=== PATIENT | female | born 1995 | race African-American/Black ===

== ENCOUNTER 2016-04-22 17:42 | Emergency (ER) | payer BC, OTHER ==
[2016-04-22] MEDS ORDERED: IBUPROFEN 400 MG TABLET (FP) PO ONE ×2 (17:47→18:10)
[2016-04-22 17:48] VITALS: BP 140/83; PULSE 96; TEMP 100.3; BMI 36.0
--- NOTE | 2016-04-22 18:16 | PDOC ---
History of Present Illness - General Chief Complaint: Cold Symptoms Stated Complaint: SORE THROAT Time Seen by Provider: 04/22/16 17:45 History Source: Patient Exam Limitations: No Limitations - History of Present Illness Initial Comments: 04/22/16 18:16 Chief complain: Sore throat since yesterday with fever, slightly productive cough times one week yellowish phlegm and nasal congestion History of present illness: Patient is a 20-year-old female with no significant medical history here today complaining of having an upper respiratory infection for one week with a cough with small amount of yellowish phlegm and nasal congestion that started approximately one week ago. Patient reports that yesterday she started to have a sore throat with fever. Patient denies any shortness of breath. Patient reports that it hurts to swallow. 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 Patient denies any nausea vomiting or diarrhea. Timing/Duration: getting worse Severity: moderate Associated Symptoms: reports: cough (with yellowish phelgm), other (sore throat) Past History - Past Medical History Allergies/Adverse Reactions: Allergies Allergy/AdvReac Type Severity Reaction Status Date / Time No Known Allergies Allergy Verified 04/22/16 17:45 Home Medications: Ambulatory Orders Penicillin V Potassium [Pen Vee K -] 500 mg PO QID #28 tablet 04/22/16 Other medical history: DENIES. - Immunization History Td Vaccination: Yes Immunization Up to Date: Yes - Psycho/Social/Smoking Cessation Hx Anxiety: No Suicidal Ideation: No Smoking Status: No Smoking History: Never smoked Number of Cigarettes Smoked Daily: 0 Hx Alcohol Use: No Review of Systems - Review of Systems Able to Perform ROS?: Yes Constitutional: Yes: Fever (today ) HEENTM: Yes: Throat Pain Respiratory: Yes: Productive cough (yellowish ). No: Symptoms reported, Shortness of Breath, SOB with Exertion, SOB at Rest, Stridor, Wheezing Cardiac (ROS): No: Symptoms Reported ABD/GI: No: Symptoms Reported : No: Symptoms Reported Musculoskeletal: No: Symptoms Reported Integumentary: No: Symptoms Reported Neurological: No: Symptoms reported *Physical Exam - Vital Signs Last Vital Signs Temp Pulse Resp BP Pulse Ox 100.3 F H 96 H 19 140/83 98 04/22/16 17:45 04/22/16 17:45 04/22/16 17:45 04/22/16 17:45 04/22/16 17:45 - Physical Exam General Appearance: Yes: Appropriately Dressed HEENT: positive: TMs Normal, Pharyngeal Erythema, Tonsillar Erythema, Nasal Congestion. negative: Tonsillar Exudate, Rhinorrhea Neck: positive: Lymphadenopathy (R). negative: Lymphadenopathy (L) Respiratory/Chest: positive: Lungs Clear, Normal Breath Sounds. negative: Chest Tender, Respiratory Distress Cardiovascular: positive: Regular Rhythm, Regular Rate, S1, S2 Integumentary: positive: Normal Color Neurologic: positive: Alert, Normal Response, Responsive Medical Decision Making - Medical Decision Making 04/22/16 18:18 Patient is a 20-year-old female with no significant medical history here today complaining of having an upper respiratory infection for one week with a cough with small amount of yellowish phlegm and nasal congestion that started approximately one week ago. Patient reports that yesterday she started to have a sore throat with fever. Patient denies any shortness of breath. Patient reports that it hurts to swallow. 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 Patient denies any nausea vomiting or diarrhea.Denies any chance of is not sexually active. Out strep throat tonsillitis Plan: Decadron 10 mg by mouth now pen VK 500 mg qid for 7 days 04/22/16 19:25 04/22/16 19:48 throat C & S still not done will treat based on clinical symptoms *DC/Admit/Observation/Transfer Diagnosis at time of Disposition: Acute tonsillitis Qualifiers: Pharyngitis/tonsillitis etiology: unspecified etiology Qualified Code(s): J03.90 - Acute tonsillitis, unspecified - Discharge Dispostion Disposition: HOME Condition at time of disposition: Stable - Referrals Referrals: Kim Church MD [Primary Care Provider] - - Patient Instructions Additional Instructions: Drink a lot a fluids and rest Return to emergency room if any difficulty breathing or swallowing. 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
== END 2016-04-22 20:30 | disposition home or self-care (01) ==
LOC: JERFT 17:42
DX: J03.90 Acute tonsillitis, unspecified (principal)
CPT/HCPCS: 87070; 87430; 99281-25

== ENCOUNTER 2016-05-16 12:18 | Emergency (ER) | payer OTHER ==
[2016-05-16 12:48] VITALS: BP 114/69; BMI 37.4
[2016-05-16] MEDS ORDERED: ACETAMINOPHEN 325 MG TABLET (FP) ONE (14:20)
[2016-05-16] MEDS ORDERED: ACETAMINOPHEN 325 MG TABLET (FP) PO ONE (14:22)
[2016-05-16] MEDS ORDERED: IBUPROFEN 600 MG TABLET (FP) PO ONE ×2 (14:32→14:34)
[2016-05-16] MEDS ORDERED: PENICILLIN G BENZATHINE 1,200,000 UNIT/2 ML PFS IM ONE (14:32)
[2016-05-16] MEDS ORDERED: DEXAMETHASONE LIQUID 0.5 MG/5 ML 240 ML BULK BOTTLE PO ONE (14:32)
[2016-05-16] MEDS ORDERED: DEXAMETHASONE SOD PHOSPHATE 10 MG/1 ML VIAL ONE (14:34)
[2016-05-16] MEDS ORDERED: PENICILLIN G BENZATHINE 2,400,000 UNIT/4 ML PFS ONE (14:34)
--- NOTE | 2016-05-16 14:38 | PDOC ---
History of Present Illness - General Chief Complaint: Sore Throat Stated Complaint: FEVER, THROAT PAIN Time Seen by Provider: 05/16/16 14:12 History Source: Patient Exam Limitations: No Limitations - History of Present Illness Initial Comments: CHIEF COMPLAINT: 20 y/o febrile, tachycardic female c/o sore throat and fever since last night. HISTORY OF PRESENT ILLNESS: The patient states she can swallow her own saliva but it is painful to swallow. She denies earache, runny nose, cough, n/v/d, CP , SOB, abd pain, back pain. Vital signs on arrival are notable for pulse of 109 secondary to temp of 102.3. REVIEW OF SYSTEMS: GENERAL/CONSTITUTIONAL: + fever/chills. No weakness. No weight change. HEAD, EYES, EARS, NOSE AND THROAT: No change in vision. No ear pain or discharge. +sore throat MUSCULOSKELETAL: No joint or muscle swelling or pain. No neck or back pain. SKIN: No rash or easy bruising. NEUROLOGIC: No headache, vertigo, loss of consciousness, or loss of sensation. PHYSICAL EXAM: GENERAL: The patient is awake, alert, and fully oriented, in no acute distress. SHe is non toxic but ill appearing. HEAD: Normal with no signs of trauma. ENT: Pupils equal, round and reactive to light, extraocular movements intact, sclera anicteric, conjunctiva clear. 2+ erythematous tonsils with copious exudate. Tender anterior cervical lymphadenopathy. NEUROLOGICAL: Normal speech, normal gait. CN II-XII grossly intact. PSYCH: Normal mood, normal affect. SKIN: Warm, dry, normal turgor, no rashes or lesions noted. Past History - Past Medical History Allergies/Adverse Reactions: Allergies Allergy/AdvReac Type Severity Reaction Status Date / Time No Known Allergies Allergy Verified 05/16/16 12:44 Home Medications: Ambulatory Orders NK [No Known Home Medication] 05/16/16 - Immunization History Td Vaccination: Yes Immunization Up to Date: Yes - Psycho/Social/Smoking Cessation Hx Anxiety: No Suicidal Ideation: No Smoking Status: No Smoking History: Never smoked Number of Cigarettes Smoked Daily: 0 Hx Alcohol Use: No *Physical Exam - Vital Signs Last Vital Signs Temp Pulse Resp BP Pulse Ox 102.3 F H 109 H 18 114/69 97 05/16/16 12:44 05/16/16 12:44 05/16/16 12:44 05/16/16 12:44 05/16/16 12:44 ED Treatment Course - Medications Given in the ED: ED Medications Discontinued Medications Generic Name Dose Route Start Last Admin Trade Name Kieran PRN Reason Stop Dose Admin Acetaminophen 650 mg 05/16/16 14:22 05/16/16 14:22 Tylenol - PO 05/16/16 14:23 650 mg NOW ONE Administration Medical Decision Making - Medical Decision Making A/P: 20 y/o female with strep pharyngitis based on Centor score. Will treat with IM bicillin, PO decadron and PO motrin. The patient's vital signs have improved. Instructed her to take motrin every 6 hours for fever/pain, gargle with warm salt water, drink plenty of fluids, eat soft/cold food, get plenty of rest and f /u with her doctor within 1 week. Instructed her to return to the ER with any worsening or concerning symptoms. The patient verbalizes understanding of all instructions, has no further questions and is awaiting discharge. *DC/Admit/Observation/Transfer Diagnosis at time of Disposition: Strep throat - Discharge Dispostion Disposition: HOME Condition at time of disposition: Improved - Referrals Referrals: Kim Church MD [Primary Care Provider] - - Patient Instructions Printed Discharge Instructions: DI for Strep Throat Additional Instructions: Discharge INstructions: -You were given 1.2M units of Bicillin for treatment of strep throat; no further antibiotics are necessary. -Take 600mg of Ibuprofen every 6 hours for fever/pain -Gargle with salt water to help with sore throat. -Eat soft/cold foods -Drink plenty of fluids and get lots of rest -Return to the ER with any worsening or concerning symptoms - Post Discharge Activity Work/School Note: Back to Work
[2016-05-16 14:57] VITALS: PULSE 78; TEMP 99.8
== END 2016-05-16 14:59 | disposition home or self-care (01) ==
LOC: JERFT 12:18
DX: J02.0 Streptococcal pharyngitis (principal); B95.4 Other streptococcus as the cause of diseases classified elsewhere
CPT/HCPCS: 96372; 99281-25

== ENCOUNTER 2016-07-04 12:00 | Emergency (ER) | payer OTHER ==
[2016-07-04] MEDS ORDERED: NAPROXEN 500 MG TABLET (FP) PO ONE (12:04)
[2016-07-04] MEDS ORDERED: AMOXICILLIN 500 MG CAPSULE (FP) PO ONE (12:04)
[2016-07-04 12:06] VITALS: BP 140/90; PULSE 98; TEMP 99.2; BMI 37.8
--- NOTE | 2016-07-04 12:11 | PDOC ---
History of Present Illness - General Chief Complaint: Cold Symptoms Stated Complaint: COUGH Time Seen by Provider: 07/04/16 12:03 History Source: Patient Exam Limitations: No Limitations - History of Present Illness Initial Comments: 07/04/16 12:06 20-year-old female with no past medical history presents with sore throat since yesterday. Patient was around a coworker who was tested positive for strep throat under treatment. She is started developing sore throat, dry cough, lymphadenopathy and fever 101 max. Came to the ED for further evaluation. Past History - Past Medical History Allergies/Adverse Reactions: Allergies Allergy/AdvReac Type Severity Reaction Status Date / Time No Known Allergies Allergy Verified 07/04/16 12:02 Home Medications: Ambulatory Orders Amoxicillin - [Amoxicillin 500mg Capsule -] 500 mg PO TID #30 capsule 07/04/16 - Immunization History Td Vaccination: Yes Immunization Up to Date: Yes - Psycho/Social/Smoking Cessation Hx Anxiety: No Suicidal Ideation: No Smoking Status: No Smoking History: Never smoked Number of Cigarettes Smoked Daily: 0 Information on smoking cessation initiated: No Hx Alcohol Use: No Drug/Substance Use Hx: No Review of Systems - Review of Systems Able to Perform ROS?: Yes Comments:: 07/04/16 12:06 GENERAL/CONSTITUTIONAL: No fever, weakness. HEAD, EYES, EARS, NOSE AND THROAT: No change in vision. No ear pain or discharge. + sore throat CARDIOVASCULAR: No chest pain or shortness of breath. RESPIRATORY: No wheezing, or hemoptysis. GASTROINTESTINAL: No abdominal pain, nausea, vomiting, diarrhea, or decreased PO intolerance. GENITOURINARY: No dysuria, frequency, or change in urination. MUSCULOSKELETAL: No joint or muscle swelling or pain. No neck or back pain. SKIN: No rash NEUROLOGIC: No headache, vertigo, loss of consciousness, or change in strength/ sensation. ENDOCRINE: No increased thirst. No abnormal weight change. HEMATOLOGIC/LYMPHATIC: No anemia, easy bleeding, or history of blood clots. ALLERGIC/IMMUNOLOGIC: No hives or skin allergy. *Physical Exam - Vital Signs Last Vital Signs Temp Pulse Resp BP Pulse Ox 99.2 F 98 H 18 140/90 99 07/04/16 12:02 07/04/16 12:02 07/04/16 12:02 07/04/16 12:02 07/04/16 12:02 - Physical Exam Comments: 07/04/16 12:07 GENERAL: Awake, alert, and fully oriented, in no acute distress. HEAD: No signs of trauma EYES: PERRLA, EOMI, sclera anicteric, conjunctiva clear ENT: Auricles normal inspection, hearing grossly normal, nares patent. + erythematous oropharynx with exudates c/ cervical lymphadenopathy NECK: Normal ROM, supple, no lymphadenopathy, JVD, or masses LUNGS: Breath sounds equal, clear to auscultation bilaterally. No wheezes, and no crackles HEART: Regular rate and rhythm, normal S1 and S2, no murmurs, rubs or gallops ABDOMEN: Soft, nontender, normoactive bowel sounds. No guarding, no rebound. No masses EXTREMITIES: Normal range of motion, no edema. No clubbing or cyanosis. No cords, erythema, or tenderness NEUROLOGICAL: Cranial nerves II through XII grossly intact. Normal speech, normal gait SKIN: Warm, Dry, normal turgor, no rashes or lesions noted. Medical Decision Making - Medical Decision Making 07/04/16 12:08 Vital Signs Temp Pulse Resp BP Pulse Ox 99.2 F 98 H 18 140/90 99 07/04/16 12:02 07/04/16 12:02 07/04/16 12:02 07/04/16 12:02 07/04/16 12:02 Centor criteria: 3 points Strep throat culture obtained However, given high pretest probability, will initiate amoxicillin. Will treat as strep throat. F/u c/ PMD I discussed the physical exam findings, ancillary test results and final diagnoses with the patient. I answered all of the patient's questions. The patient was satisfied with the care received and felt comfortable with the discharge plan and treatment plan. The patient will call their primary care physician within 24 hours to arrange follow-up and will return to the Emergency Department with any new, persistant or worsening symptoms. 07/04/16 12:39 Strep positive. Pt informed of results. *DC/Admit/Observation/Transfer Diagnosis at time of Disposition: Pharyngitis Qualifiers: Pharyngitis/tonsillitis etiology: other specified organisms Qualified Code(s): J02.8 - Acute pharyngitis due to other specified organisms - Discharge Dispostion Disposition: HOME Condition at time of disposition: Stable Admit: No - Prescriptions Prescriptions: Amoxicillin - [Amoxicillin 500mg Capsule -] 500 mg PO TID #30 capsule - Patient Instructions Printed Discharge Instructions: Sore Throat, DI for Pharyngitis/ Tonsillopharyngitis -- Adult Additional Instructions: Please take the antibiotics as prescribed. Please call back for the results of the culture. Call [phone] for the results. You may take 600 mg of ibuprofen every 6 hours needed for pain.
--- NOTE | 2016-07-06 09:55 | PDOC ---
Patient Follow-up (Call Back) - Post ED Follow - Up Condition at time of discharge: Stable Disposition at time of original discharge: HOME - Disposition Additional Instructions/Notes: Left message on patient's voicemail. Strep culture positive. Patient was treated with amoxicillin on initial visit due to positive rapid strep.
== END 2016-07-04 12:51 | disposition home or self-care (01) ==
LOC: FER 12:00
DX: J02.8 Acute pharyngitis due to other specified organisms (principal)
CPT/HCPCS: 87070; 87430; 99281-25